=== PATIENT | male | born 1940 | race Caucasian/White ===

== ENCOUNTER 2021-12-16 09:37 | Day surgery (SDC) | payer MEDICARE, SELFPAY ==
[2021-12-10 13:47] VITALS: BMI 25.0
--- NOTE | 2021-12-12 08:13 | MHC.SHP ---
Pre-Procedural Eval Section A Date of Service: 12/12/21 The patient is an INPATIENT: No Changes since office visit: No Cold of Flu in the past 2 weeks, No New Medical Problems, No Changes in Medication and No Patient answered all questions The History & Physical has been completed within 30 days and I have reviewed it.: Yes Section B Chief Complaint: Age-related nuclear cataract, left eye Allergies: Allergies Allergy/AdvReac Type Severity Reaction Status Date / Time shrimp Allergy Intermediate Hives Verified 12/10/21 13:46 Plan Diagnosis/Plan: Unchanged I have reviewed the history and physical and performed a pertinent physical examination on my patient. No changes have occurred unless specified.
--- NOTE | 2021-12-13 09:41 | HO.ANESPROP2 ---
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 EF 20% by echo in 2020 Eliquis for afib PMFSH Past Medical History Medical History (Updated 12/10/21 @ 13:46 by Tosha Ellison RN) Atrial fibrillation CAD (coronary artery disease) CHF (congestive heart failure) COVID-19 vaccine series completed Diabetes Elevated cholesterol HTN (hypertension) Hx of cardiac pacemaker Hypothyroid Myocardial infarction On anticoagulant therapy Surgical History Surgical History (Updated 12/10/21 @ 13:44 by Tosha Ellison RN) AICD (automatic cardioverter/defibrillator) present H/O colonoscopy Hx of CABG Hx of tonsillectomy Social History Social History Household Members Other:: & sister Are you a primary complex care nurse practitioner to a significant other at home: No Do you presently have visiting nurse or other home services: No Patient Tobacco Use Status: Former Tobacco user Quit Date: age 51 Tobacco use type: Cigarette Use of substances other than those prescribed or required for medical reasons: No Have you been hit, kicked, punched, or otherwise hurt by someone within the past year? If so, by whom?: No Are you DNR?: No Advance Directives: No Advance Directives Information Provided: Yes (as above noted) Advance Directives on File: No Recently lost weight without trying: No Eating poorly because of decreased appetite: No Nutrition Risks: Surgical patient >75years Poor oral hygiene: No (upper full denture) Meds Allergies Allergy/AdvReac Type Severity Reaction Status Date / Time shrimp Allergy Intermediate Hives Verified 12/10/21 13:46 Home Medications Medication Instructions Recorded Confirmed Last Taken Type allopurinol 300 mg tablet 1 tab PO DAILY 12/10/21 12/10/21 Unknown History apixaban 5 mg tablet (Eliquis) 1 tab PO BID 12/10/21 12/10/21 12/16/21 History atorvastatin 80 mg tablet 1 tab PO DAILY 12/10/21 12/10/21 Unknown History carvedilol 25 mg tablet 1 tab PO BID 12/10/21 12/10/21 12/16/21 History digoxin 125 mcg (0.125 mg) tablet 1 tab PO DAILY 12/10/21 12/10/21 Unknown History furosemide 20 mg tablet 1 tab PO DAILY 12/10/21 12/10/21 Unknown History levothyroxine 150 mcg tablet 1 tab PO DAILY 12/10/21 12/10/21 Unknown History metformin 500 mg tablet 1 tab PO DAILY 12/10/21 12/10/21 Unknown History pentoxifylline 400 mg 1 tab PO TID 12/10/21 12/10/21 Unknown History tablet,extended release potassium chloride 10 mEq 1 cap PO DAILY 12/10/21 12/10/21 Unknown History capsule,extended release sacubitril 97 mg-valsartan 103 mg 1 tab PO BID 12/10/21 12/10/21 12/16/21 History tablet (Entresto) spironolactone 25 mg tablet 1 tab PO DAILY 12/10/21 12/10/21 Unknown History Exam Exam Date and Time: December 13, 2021 0941 Height,Weight and Vital Signs: Height 5 ft 6 in Weight 70.307 kg Assessment and Plan Assessment Anesthesia Assessment: Chart Reviewed Documented by User: Ray Reeder MD 12/16/21 10:29 [facility] Past Medical History Medical History (Updated 12/10/21 @ 13:46 by Tosha Ellison RN) Atrial fibrillation CAD (coronary artery disease) CHF (congestive heart failure) COVID-19 vaccine series completed Diabetes Elevated cholesterol HTN (hypertension) Hx of cardiac pacemaker Hypothyroid Myocardial infarction On anticoagulant therapy Family History Family history of problems with anesthesia: No Surgical History Surgical History (Updated 12/10/21 @ 13:44 by Tosha Ellison RN) AICD (automatic cardioverter/defibrillator) present H/O colonoscopy Hx of CABG Hx of tonsillectomy History of Problems with Anesthesia: No Social History Social History Household Members Other:: & sister Are you a primary complex care nurse practitioner to a significant other at home: No Do you presently have visiting nurse or other home services: No Patient Tobacco Use Status: Former Tobacco user Quit Date: age 51 Tobacco use type: Cigarette Use of substances other than those prescribed or required for medical reasons: No Have you been hit, kicked, punched, or otherwise hurt by someone within the past year? If so, by whom?: No Are you DNR?: No Advance Directives: No Advance Directives Information Provided: Yes (as above noted) Advance Directives on File: No Recently lost weight without trying: No Eating poorly because of decreased appetite: No Nutrition Risks: Surgical patient >75years Poor oral hygiene: No (upper full denture) Meds Allergies Allergy/AdvReac Type Severity Reaction Status Date / Time shrimp Allergy Intermediate Hives Verified 12/10/21 13:46 Home Medications Medication Instructions Recorded Confirmed Last Taken Type allopurinol 300 mg tablet 1 tab PO DAILY 12/10/21 12/10/21 Unknown History apixaban 5 mg tablet (Eliquis) 1 tab PO BID 12/10/21 12/10/21 12/16/21 History atorvastatin 80 mg tablet 1 tab PO DAILY 12/10/21 12/10/21 Unknown History carvedilol 25 mg tablet 1 tab PO BID 12/10/21 12/10/21 12/16/21 History digoxin 125 mcg (0.125 mg) tablet 1 tab PO DAILY 12/10/21 12/10/21 Unknown History furosemide 20 mg tablet 1 tab PO DAILY 12/10/21 12/10/21 Unknown History levothyroxine 150 mcg tablet 1 tab PO DAILY 12/10/21 12/10/21 Unknown History metformin 500 mg tablet 1 tab PO DAILY 12/10/21 12/10/21 Unknown History pentoxifylline 400 mg 1 tab PO TID 12/10/21 12/10/21 Unknown History tablet,extended release potassium chloride 10 mEq 1 cap PO DAILY 12/10/21 12/10/21 Unknown History capsule,extended release sacubitril 97 mg-valsartan 103 mg 1 tab PO BID 12/10/21 12/10/21 12/16/21 History tablet (Entresto) spironolactone 25 mg tablet 1 tab PO DAILY 12/10/21 12/10/21 Unknown History Exam Airway Mallampati Class: II TM Dist: >3cm Neck ROM: Full Denture: Upper Loose/Missing/Broken Teeth: Yes (lower teeth poor dentition) Heart: rrr+s1s2 Lungs: cta b/l Assessment and Plan Assessment Anesthesia Assessment: Anesthesia Plan Discussed Final Anesthetic Review Family History of Problems with Anesthesia: No History of Problems with Anesthesia: No NPO: Yes ASA Class: III Final Preanesthetic Review: No Changes in Pt Med Stat, Meds/Allgs Chart Reviewed, Consent Obtained/Reviewed and Anes Risks/Benef Reviewed Patient Risk: Intermediate Procedure Risk: Low Assessment/Block/Sedation in SS: Assess/Block/Sedation-SS Anesthetic Plan Anesthetic Plan: MAC: and Agree w/ Assess. and Plan Disposition: Standard PACU
[2021-12-16 10:04] VITALS: BP 124/72; PULSE 76; RESP 17; TEMP 36.1; O2SAT 96
[2021-12-16] MEDS: Lactated Ringers 500 ML 50 ML IV (10:19)
[2021-12-16] MEDS: Tropicamide 1 % Ophth Sol 3 ML BTL 1 DROP EYE-LEFT ×3 (10:20→10:21)
[2021-12-16] MEDS: Phenylephrine HCL 2.5% Oph SoL 2 ML BOTTLE 1 DROP EYE-LEFT ×3 (10:20→10:21)
[2021-12-16] MEDS: Tetracaine HCl/PF 0.5% Oph Sol 4 ML DROPS 1 DROP EYE-LEFT (10:20)
[2021-12-16 10:21] LABS: Glucose, Whole Blood 118 mg/dL (60-115)
--- NOTE | 2021-12-16 11:35 | HO.PNOPHT ---
Ophthalmology Procedure Procedure Date of Service: 12/16/21 Ophthalmology Viscoelastic: Healaugustus Copet Dual Pack Pro Ophthalmology Lenses: TECLEMUEL [id number] (22) Procedure Notes: PREOPERATIVE DIAGNOSIS: Decreased visual acuity left eye secondary to cataract POSTOPERATIVE DIAGNOSIS: Same PROCEDURE: Left cataract extraction with intraocular lens insertion SURGEON: Wiley Suarez M.D. ANESTHESIA: Topical/MAC ESTIMATED BLOOD LOSS: None COMPLICATIONS: None After obtaining informed consent, the patient was brought to the operation room suite and placed in the supine position. After adequate sedation per anesthesia, topical drops of Tetracaine were given to the left eye. The eye was then prepped and draped in the usual sterile fashion. The operating room microscope was then positioned over the operative eye and a lid speculum placed. A paracentesis was created. Viscoelastic was then instilled into the anterior chamber. A three plane incision was then created temporally, utilizing a 2.85 mm keratome. Capsulotomy forceps were then utilized to create a circular tear capsulotomy. Hydrodissection and hydrodelineation were carried out until adequate mobilization of the nucleus occurred. Phacoemulsification was then utilized to remove the dense central nucleus followed by removal of the cortical material utilizing the automated aspiration irrigation unit. Viscoat elastic was instilled into the posterior capsular bag followed by placement of a posterior chamber intraocular lens without difficulty. The residual Viscoat elastic was then removed utilizing the automated IA machine. The wound was check and found to be watertight. The patient tolerated the procedure well and the lid speculum was removed. Intracameral injection of Vigamox 0.1 mL followed by a subtenon injection of Kenalog-40 0.2 mL were administered. The patient will be seen in the a.m.
[2021-12-16 11:57] VITALS: BP 130/70; PULSE 70; RESP 16; TEMP 36.4; O2SAT 97
== END 2021-12-16 12:14 | disposition home or self-care (01) ==
PROVIDERS: PCP Internal Medicine; Visit Provider Ophthalmology
PROC: (CPT 66985; principal; 2021-12-16 11:40)
DX: H25.12 Age-related nuclear cataract, left eye (principal); H52.4 Presbyopia; I11.0 Hypertensive heart disease with heart failure; I50.9 Heart failure, unspecified; E03.9 Hypothyroidism, unspecified; E78.00 Pure hypercholesterolemia, unspecified; E11.9 Type 2 diabetes mellitus without complications; I48.91 Unspecified atrial fibrillation; Z79.84 Long term (current) use of oral hypoglycemic drugs; Z79.01 Long term (current) use of anticoagulants; Z79.82 Long term (current) use of aspirin; Z79.899 Other long term (current) drug therapy; Z87.891 Personal history of nicotine dependence
CPT/HCPCS: 66984; 82947; J2250; J3300; V2632

== ENCOUNTER 2021-12-30 10:32 | Day surgery (SDC) | payer MEDICARE, SELFPAY ==
[2021-12-10 13:50] VITALS: BMI 25.0
--- NOTE | 2021-12-26 08:43 | MHC.SHP ---
Pre-Procedural Eval Section A Date of Service: 12/26/21 The patient is an INPATIENT: No Changes since office visit: No Cold of Flu in the past 2 weeks, No New Medical Problems, No Changes in Medication and No Patient answered all questions The History & Physical has been completed within 30 days and I have reviewed it.: Yes Section B Chief Complaint: Age-related nuclear cataract, right eye Allergies: Allergies Allergy/AdvReac Type Severity Reaction Status Date / Time shrimp Allergy Intermediate Hives Verified 12/10/21 13:46 Plan Diagnosis/Plan: Unchanged I have reviewed the history and physical and performed a pertinent physical examination on my patient. No changes have occurred unless specified.
--- NOTE | 2021-12-26 11:57 | HO.ANESPROP2 ---
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 EF 20% by echo in 2020 Eliquis for afib PMFSH Past Medical History Medical History (Updated 12/10/21 @ 13:46 by Tosha Ellison RN) Atrial fibrillation CAD (coronary artery disease) CHF (congestive heart failure) COVID-19 vaccine series completed Diabetes Elevated cholesterol HTN (hypertension) Hx of cardiac pacemaker Hypothyroid Myocardial infarction On anticoagulant therapy Family History Family history of problems with anesthesia: No Surgical History Surgical History (Updated 12/10/21 @ 13:44 by Tosha Ellison RN) AICD (automatic cardioverter/defibrillator) present H/O colonoscopy Hx of CABG Hx of tonsillectomy History of Problems with Anesthesia: No Social History Social History Household Members Other:: & sister Are you a primary respiratory care assistant to a significant other at home: No Do you presently have visiting nurse or other home services: No Patient Tobacco Use Status: Former Tobacco user Quit Date: age 51 Tobacco use type: Cigarette Use of substances other than those prescribed or required for medical reasons: No Have you been hit, kicked, punched, or otherwise hurt by someone within the past year? If so, by whom?: No Are you DNR?: No Advance Directives: No Advance Directives Information Provided: Yes (as above noted) Advance Directives on File: No Recently lost weight without trying: No Eating poorly because of decreased appetite: No Nutrition Risks: Surgical patient >75years Poor oral hygiene: No (upper full denture) Meds Allergies Allergy/AdvReac Type Severity Reaction Status Date / Time shrimp Allergy Intermediate Hives Verified 12/10/21 13:46 Home Medications Medication Instructions Recorded Confirmed Last Taken Type allopurinol 300 mg tablet 1 tab PO DAILY 12/10/21 12/10/21 Unknown History apixaban 5 mg tablet (Eliquis) 1 tab PO BID 12/10/21 12/10/21 12/16/21 History atorvastatin 80 mg tablet 1 tab PO DAILY 12/10/21 12/10/21 Unknown History carvedilol 25 mg tablet 1 tab PO BID 12/10/21 12/10/21 12/16/21 History digoxin 125 mcg (0.125 mg) tablet 1 tab PO DAILY 12/10/21 12/10/21 Unknown History furosemide 20 mg tablet 1 tab PO DAILY 12/10/21 12/10/21 Unknown History levothyroxine 150 mcg tablet 1 tab PO DAILY 12/10/21 12/10/21 Unknown History metformin 500 mg tablet 1 tab PO DAILY 12/10/21 12/10/21 Unknown History pentoxifylline 400 mg 1 tab PO TID 12/10/21 12/10/21 Unknown History tablet,extended release potassium chloride 10 mEq 1 cap PO DAILY 12/10/21 12/10/21 Unknown History capsule,extended release sacubitril 97 mg-valsartan 103 mg 1 tab PO BID 12/10/21 12/10/21 12/16/21 History tablet (Entresto) spironolactone 25 mg tablet 1 tab PO DAILY 12/10/21 12/10/21 Unknown History Exam Exam Date and Time: December 26, 2021 1157 Height,Weight and Vital Signs: Height 5 ft 6 in Weight 70.307 kg Assessment and Plan Assessment Anesthesia Assessment: Chart Reviewed Final Anesthetic Review Family History of Problems with Anesthesia: No History of Problems with Anesthesia: No Documented by User: Ray Reeder MD 12/30/21 08:34 [facility] Past Medical History Medical History (Updated 12/10/21 @ 13:46 by Tosha Ellison RN) Atrial fibrillation CAD (coronary artery disease) CHF (congestive heart failure) COVID-19 vaccine series completed Diabetes Elevated cholesterol HTN (hypertension) Hx of cardiac pacemaker Hypothyroid Myocardial infarction On anticoagulant therapy Surgical History Surgical History (Updated 12/10/21 @ 13:44 by Tosha Ellison RN) AICD (automatic cardioverter/defibrillator) present H/O colonoscopy Hx of CABG Hx of tonsillectomy Social History Social History Household Members Other:: & sister Are you a primary respiratory care assistant to a significant other at home: No Do you presently have visiting nurse or other home services: No Patient Tobacco Use Status: Former Tobacco user Quit Date: age 51 Tobacco use type: Cigarette Use of substances other than those prescribed or required for medical reasons: No Have you been hit, kicked, punched, or otherwise hurt by someone within the past year? If so, by whom?: No Are you DNR?: No Advance Directives: No Advance Directives Information Provided: Yes (as above noted) Advance Directives on File: No Recently lost weight without trying: No Eating poorly because of decreased appetite: No Nutrition Risks: Surgical patient >75years Poor oral hygiene: No (upper full denture) Meds Allergies Allergy/AdvReac Type Severity Reaction Status Date / Time shrimp Allergy Intermediate Hives Verified 12/10/21 13:46 Home Medications Medication Instructions Recorded Confirmed Last Taken Type allopurinol 300 mg tablet 1 tab PO DAILY 12/10/21 12/10/21 Unknown History apixaban 5 mg tablet (Eliquis) 1 tab PO BID 12/10/21 12/10/21 12/16/21 History atorvastatin 80 mg tablet 1 tab PO DAILY 12/10/21 12/10/21 Unknown History carvedilol 25 mg tablet 1 tab PO BID 12/10/21 12/10/21 12/16/21 History digoxin 125 mcg (0.125 mg) tablet 1 tab PO DAILY 12/10/21 12/10/21 Unknown History furosemide 20 mg tablet 1 tab PO DAILY 12/10/21 12/10/21 Unknown History levothyroxine 150 mcg tablet 1 tab PO DAILY 12/10/21 12/10/21 Unknown History metformin 500 mg tablet 1 tab PO DAILY 12/10/21 12/10/21 Unknown History pentoxifylline 400 mg 1 tab PO TID 12/10/21 12/10/21 Unknown History tablet,extended release potassium chloride 10 mEq 1 cap PO DAILY 12/10/21 12/10/21 Unknown History capsule,extended release sacubitril 97 mg-valsartan 103 mg 1 tab PO BID 12/10/21 12/10/21 12/16/21 History tablet (Entresto) spironolactone 25 mg tablet 1 tab PO DAILY 12/10/21 12/10/21 Unknown History Exam Airway Mallampati Class: II TM Dist: >3cm Neck ROM: Full Loose/Missing/Broken Teeth: Yes (Yes (lower teeth poor dentition)) Heart: irreg irreg+s1s2 Lungs: cta b/l Assessment and Plan Assessment Anesthesia Assessment: Anesthesia Plan Discussed Final Anesthetic Review NPO: Yes ASA Class: III Final Preanesthetic Review: No Changes in Pt Med Stat, Meds/Allgs Chart Reviewed, Consent Obtained/Reviewed and Anes Risks/Benef Reviewed Patient Risk: Intermediate Procedure Risk: Low Assessment/Block/Sedation in SS: Assess/Block/Sedation-SS Anesthetic Plan Anesthetic Plan: MAC: and Agree w/ Assess. and Plan Disposition: Standard PACU
[2021-12-30 12:04] VITALS: BP 120/72; PULSE 70; RESP 18; TEMP 36.8; O2SAT 96
[2021-12-30] MEDS: Tetracaine HCl/PF 0.5% Oph Sol 4 ML DROPS 1 DROP EYE-RIGHT (12:10)
[2021-12-30] MEDS: Tropicamide 1 % Ophth Sol 3 ML BTL 1 DROP EYE-RIGHT ×3 (12:10→12:16)
[2021-12-30] MEDS: Phenylephrine HCL 2.5% Oph SoL 2 ML BOTTLE 1 DROP EYE-RIGHT ×3 (12:11→12:16)
[2021-12-30 12:36] LABS: Glucose, Whole Blood 102 mg/dL (60-115)
--- NOTE | 2021-12-30 13:03 | HO.PNOPHT ---
Ophthalmology Procedure Procedure Date of Service: 12/30/21 Ophthalmology Viscoelastic: Healaugustus Duet Dual Pack Pro Ophthalmology Lenses: TECNIS [id number] (22.5) Procedure Notes: PREOPERATIVE DIAGNOSIS: Decreased visual acuity right eye secondary to cataract POSTOPERATIVE DIAGNOSIS: Same PROCEDURE: Right cataract extraction with intraocular lens insertion SURGEON: Wiley Suarez M.D. ANESTHESIA: Topical/MAC ESTIMATED BLOOD LOSS: None COMPLICATIONS: None After obtaining informed consent, the patient was brought to the operating room suite and placed in the supine position. After adequate sedation per anesthesia, topical drops of Tetracaine were given to the right eye. The eye was then prepped and draped in the usual sterile fashion. The operating room microscope was then positioned over the operative eye and a lid speculum placed. A paracentesis was created. Viscoelastic was then instilled into the anterior chamber. A three plane incision was then created temporally, utilizing a 2.85 mm keratome. Capsulotomy forceps were then utilized to create a circular tear capsulotomy. Hydrodissection and hydrodelineation were carried out until adequate mobilization of the nucleus occurred. Phacoemulsification was then utilized to remove the dense central nucleus followed by removal of the cortical material utilizing the automated aspiration irrigation unit. Viscoelastic was instilled into the posterior capsular bag followed by placement of a posterior chamber intraocular lens without difficulty. The residual Viscoelastic was then removed utilizing the automated IA machine. The wound was checked and found to be watertight. The patient tolerated the procedure well and the lid speculum was removed. Intracameral injection of Vigamox 0.1 mL followed by a subtenon injection of Kenalog-40 0.2 mL were administered. The patient will be seen in the a.m.
[2021-12-30 13:32] VITALS: BP 119/79; PULSE 71; RESP 18; TEMP 36.3; O2SAT 98
== END 2021-12-30 13:50 | disposition home or self-care (01) ==
PROVIDERS: PCP Internal Medicine; Visit Provider Ophthalmology
PROC: (CPT 66985; principal; 2021-12-30 13:20)
DX: H25.11 Age-related nuclear cataract, right eye (principal); H52.4 Presbyopia; I10 Essential (primary) hypertension; I48.91 Unspecified atrial fibrillation; E03.9 Hypothyroidism, unspecified; E78.00 Pure hypercholesterolemia, unspecified; E11.9 Type 2 diabetes mellitus without complications; Z79.84 Long term (current) use of oral hypoglycemic drugs; Z79.82 Long term (current) use of aspirin; Z79.01 Long term (current) use of anticoagulants; Z79.899 Other long term (current) drug therapy; Z87.891 Personal history of nicotine dependence
CPT/HCPCS: 66984; 82947; J2250; J3300; V2632